=== PATIENT | female | born 1995 | race Caucasian/White ===

== ENCOUNTER 2018-12-30 03:44 | Emergency (ER) | payer MEDICAID ==
[2018-12-30] MEDS ORDERED: MORPHINE SULFATE 10 MG/ML INJ IM ONE (04:42)
[2018-12-30] MEDS ORDERED: ONDANSETRON HCL 8 MG TABLET PO ONE (04:42)
[2018-12-30 05:02] LABS: ABSOLUTE BASOPHILS # (AUTO) 0.1 10^3/uL (0.0-0.2); ABSOLUTE EOSINOPHILS # (AUTO) 0.5 10^3/uL (0.0-0.6); ABSOLUTE LYMPHOCYTES (AUTO) 2.4 10^3/uL (0.5-4.7); ABSOLUTE MONOCYTES (AUTO) 0.6 10^3/uL (0.1-1.4); ABSOLUTE NEUT (AUTO) 10.9 10^3/uL (1.7-8.2); BASOPHILS % (AUTO) 0.5 % (0-2); EOSINOPHILS % (AUTO) 3.6 % (0-6); HEMATOCRIT 41.9 % (36.0-47.0); HEMOGLOBIN 14.2 g/dL (12.0-15.5); LYMPHOCYTES % (AUTO) 16.3 % (13-45); MEAN CORPUSCULAR HEMOGLOBIN 28.7 pg (27.0-33.4); MEAN CORPUSCULAR HGB CONC 33.9 g/dL (32.0-36.0); MEAN CORPUSCULAR VOLUME 85 fl (80-97); MONOCYTES % (AUTO) 4.4 % (3-13); PLATELET COUNT 275 10^3/uL (150-450); RED BLOOD COUNT 4.95 10^6/uL (3.72-5.28); RED CELL DISTRIBUTION WIDTH 13.3 % (11.5-14.0); SEGMENTED NEUTROPHILS % (AUTO) 75.2 % (42-78); TOTAL CELLS COUNTED % (AUTO) 100 %; WHITE BLOOD COUNT 14.5 10^3/uL (4.0-10.5)
[2018-12-30 05:26] LABS: ALBUMIN 4.3 g/dL (3.5-5.0); ALKALINE PHOSPHATASE 77 U/L (38-126); ANION GAP 9 (5-19); ASPARTATE AMINO TRANSFERASE 55 U/L (14-36); BILIRUBIN,DIRECT 0.3 mg/dL (0.0-0.4); BILIRUBIN,TOTAL 0.6 mg/dL (0.2-1.3); BLOOD UREA NITROGEN 9 mg/dL (7-20); CARBON DIOXIDE 30 mmol/L (22-30); CHLORIDE 103 mmol/L (98-107); GLUCOSE 140 mg/dL (75-110); POTASSIUM 4.8 mmol/L (3.6-5.0); TOTAL PROTEIN 7.3 g/dL (6.3-8.2)
[2018-12-30 06:40] LABS: AMORPHOUS SEDIMENT,URINE 1+ /HPF; APPEARANCE,URINE TURBID; BILIRUBIN,URINE NEGATIVE (NEGATIVE); COLOR,URINE DARK YELLOW; GLUCOSE, URINE NEGATIVE (NEGATIVE); KETONES,URINE NEGATIVE (NEGATIVE); LEUKOCYTE ESTERASE,URINE LARGE (NEGATIVE); NITRITE,URINE NEGATIVE (NEGATIVE); PROTEIN,URINE >=500 mg/dL (NEGATIVE); URINE SPECIFIC GRAVITY 1.017; UROBILINOGEN,URINE NEGATIVE mg/dL (<2.0)
--- NOTE | 2018-12-30 07:23 | RADIOLOGY REPORT (SQ) ---
EXAM: US RETROPERITONEUM, LIMITED CLINICAL DATA: 23-year-old female who presents for evaluation of possible kidney stones. TECHNICAL DATA: Grayscale and Doppler ultrasound imaging of the abdomen was performed including imaging of the kidneys, bladder, aorta, inferior vena cava and common iliac artery origins. Comparison: None. FINDINGS: The right kidney measures 13.7 x 5.1 x 5.9 cm. The renal cortex is normal. There is mild right-sided hydronephrosis. No definite renal mass lesions, renal calculi or perinephric fluid collections are seen. The left kidney measures 14.1 x 5.3 x 5.6 cm. The renal cortex is normal. There is no evidence of renal mass, calculi or perinephric fluid collection. There is no pelvocaliectasis. The bladder is incompletely distended. The estimated prevoid bladder volume measures 15 mL. The right ureteral jet is visualized. The abdominal aorta is grossly normal in caliber and contour. IMPRESSION: 1. Mild right-sided hydronephrosis. 2. No definite renal calculi are appreciated on this examination.
[2018-12-30] MEDS ORDERED: CEFTRIAXONE INJ 1000 MG VIAL IM ONE (08:16)
[2018-12-30] MEDS ORDERED: LIDOCAINE 1% INJ (10 MG/ML) 10 ML MDV INJ ONE (08:16)
[2018-12-30] MEDS ORDERED: ONDANSETRON ODT 4 MG TAB (6 TAB/ER DISP) PO PRN (08:17)
--- NOTE | 2018-12-30 08:25 | ER Document Report ---
ED GI/ - General Chief Complaint: Possible Kidney Stone Stated Complaint: FLANK PAIN Time Seen by Provider: 12/30/18 08:09 Notes: 23-year-old female with history of IgA nephropathy and nephrolithiasis presents to the emergency department with chief complaint of right-sided flank pain over the last 3 days. Patient states that she has had associated nausea with no vomiting, fevers and chills, and denies urinary symptoms as she states "I do not feel the symptoms of UTIs because of my nephropathy". Denies abdominal pain. Patient states that she just generally does not feel well. - Related Data Allergies/Adverse Reactions: NSAIDS (Non-Steroidal Anti-Inflamma Allergy (Verified 12/30/18 03:51) Past Medical History - Social History Smoking Status: Never Smoker Frequency of alcohol use: None Drug Abuse: None Family History: None Patient has suicidal ideation: No Patient has homicidal ideation: No Renal/ Medical History: Reports: Hx Kidney Stones Past Surgical History: Reports: Hx Tubal Ligation Review of Systems - Review of Systems Constitutional: See HPI EENT: No symptoms reported Cardiovascular: No symptoms reported Respiratory: No symptoms reported Gastrointestinal: See HPI Genitourinary: See HPI Female Genitourinary: No symptoms reported Musculoskeletal: See HPI Skin: No symptoms reported Hematologic/Lymphatic: No symptoms reported Neurological/Psychological: No symptoms reported Physical Exam - Vital signs Vitals: Temp Pulse Resp BP Pulse Ox 99.5 F 99 16 143/95 H 97 12/30/18 03:49 12/30/18 03:49 12/30/18 03:49 12/30/18 03:49 12/30/18 03:49 - Notes Notes: PHYSICAL EXAMINATION: Reviewed vital signs and charting by RN GENERAL: Alert, interacts well. No acute distress. HEAD: Normocephalic, atraumatic. EYES: Pupils equal and round. Extraocular movements intact. ENT: Oral mucosa moist, tongue midline. NECK: Full range of motion. Trachea midline. LUNGS: Clear to auscultation bilaterally, no wheezes, rales, or rhonchi. No respiratory distress. HEART: Regular rate and rhythm. No murmur ABDOMEN: soft, non-tender. No distention. Bowel sounds present BACK: R CVAT EXTREMITIES: Moves all 4 extremities spontaneously. No edema, No cyanosis. PSYCH: Normal affect, normal mood. SKIN: Warm, dry, normal turgor. No rashes or lesions noted. Course - Re-evaluation Re-evalutation: 12/30/18 09:32 Overall well-appearing and nontoxic. Patient is afebrile. A renal ultrasound was performed which did not show any evidence of calculi and showed a mild hydronephrosis of the right kidney. Patient's leukocytosis of 14,500 urinalysis consistent with pyelonephritis correlated with clinical exam. Patient will receive Rocephin 1 g IM here in the emergency department and placed on Keflex 500 mg p.o. every 12 hours for 14 days. I instructed patient to follow-up with her primary doctor. Patient understands plan and is stable for discharge. - Vital Signs Vital signs: Temp Pulse Resp BP Pulse Ox 97.8 F 92 16 143/95 H 97 12/30/18 08:14 12/30/18 08:14 12/30/18 08:14 12/30/18 03:49 12/30/18 08:14 - Laboratory Result Diagrams: 12/30/18 04:35 12/30/18 04:35 Laboratory results interpreted by me: 12/30/18 12/30/18 12/30/18 04:35 04:35 05:35 WBC 14.5 H Absolute Neuts (auto) 10.9 H Glucose 140 H AST 55 H Urine Protein >=500 H Urine Blood SMALL H Ur Leukocyte Esterase LARGE H Discharge - Discharge Clinical Impression: Pyelonephritis Condition: Good Disposition: HOME, SELF-CARE Instructions: Acetaminophen, Antinausea Medication ([facility]) Additional Instructions: You have been diagnosed with a condition called pyelonephritis which is an infection involving your kidneys and bladder. You have been given a dose of antibiotics here in the emergency department to help begin to treat this infection. Your also being sent home on antibiotics. Please start taking these later on today when you fill the prescription. Complete the course even if you feel better. Please return if you have persistent vomiting, pass out, have worsening pain, become unable to tolerate fluids, or have any other symptoms that are concerning to you. Please follow-up with your primary care physician in the next 24-48 hours. Prescriptions: Cephalexin Monohydrate [Keflex 500 mg Capsule] 500 mg PO Q12H 14 Days #28 capsule
[2018-12-30 09:10] VITALS: BP 142/88
== END 2018-12-30 09:25 | disposition home or self-care (01) ==
LOC: EDBD → ER 03:44
DX: N12 Tubulo-interstitial nephritis, not specified as acute or chronic (principal); R10.9 Unspecified abdominal pain; R11.0 Nausea
CPT/HCPCS: 36415; 83690; 84703; 85025; 80053; 81001; 76775; J2270; S0119; J0696; J3490; 96374; 96375; 99284